=== PATIENT | female | born 1965 | race Caucasian/White ===

== ENCOUNTER 2017-05-20 12:40 | Emergency (ER) | payer MEDICARE, OTHER ==
[~2017-05-20] VITALS: Ht 172.7 cm; Wt 95.8 kg
[~2017-05-20 12:40] MED LIST: CYCL1TAB29 PO; DIAZ5 PO; HYDR-3533 PO; HYDR25TA5 PO; LEVO50TA4 PO; NEXI40CA PO; PRED-503 PO; TRAZ100T4 PO
[2017-05-20 12:44] VITALS: BP 161/94; PULSE 99; RESP 16; TEMP 98.5; O2SAT 96
[2017-05-20] MEDS ORDERED: PRED10 PO (12:56)
--- NOTE | 2017-05-20 12:59 | PD ---
HPI . lost voice, slightly sore throat Chief Complaint: ENT Complaint Time Seen by Provider: 12:59 Travel History International Travel<30 days: No Contact w/Intl Traveler<30days: No Traveled to known affect area: No History of Present Illness HPI 52-year-old female here with complaints of loss of voice and slight sore throat. Patient tells me that on 15 May she went to a concert and she thought she lost her voice from yelling too much, however her friend had similar issues and her throat and voice are back, but the patient's voice is still somewhat hoarse. She feels her throat may be tight. She decided to come to the emergency room for evaluation because she wants to be placed on antibiotics as her grandchildren are coming to visit her. She denies any fever, chills or cold like symptoms. PFSH Past Medical History Autoimmune Disease: No Depression: Yes Cancer: No Cardiovascular Problems: Yes (HEART MURMUR) Chemotherapy: No COPD: Yes Cerebrovascular Accident: Yes Diabetes: No Diminished Hearing: No Endocrine: Yes GERD: Yes Genitourinary: No Immune Disorder: No Implanted Vascular Access Dvce: Yes (ANEURYSM CLIP) Musculoskeletal: No Neurologic: No Psychiatric: Yes (DEPRESSION ) Reproductive: No Respiratory: No Immunizations Current: Yes Pancreatitis: Yes Radiation Therapy: No Thyroid Disease: Yes Tetanus Vaccination: > 5 Years Influenza Vaccination: No ?: Not Past Surgical History Abdominal Surgery: Yes (appy) Appendectomy: Yes Body Medical Devices: clips in brain Genitourinary Surgery: Yes (BLADDER SURGERY ) Gynecologic Surgery: Yes (hsyterectomy ) Hysterectomy: Yes Neurologic Surgery: Yes (CLIP ON BRAIN ANUERYSM) Social History Alcohol Use: No (former drinker) Tobacco Use: Yes (3/4 PK) Substance Use: No Allergies-Medications (Allergen,Severity, Reaction): Coded Allergies: No Known Allergies (Unverified , 05/20/17) Reported Meds & Prescriptions Reported Meds & Active Scripts Active Reported Prednisone 10 Mg Tab 10 Mg PO DAILY Hydrochlorothiazide 25 Mg Tab 25 Mg PO DAILY Valium (Diazepam) 5 Mg Tab 5 Mg PO HS PRN Nexium (Esomeprazole DR) 40 Mg Capdr 40 Mg PO DAILY Levothyroxine (Levothyroxine Sodium) 50 Mcg Tab 50 Mcg PO DAILY Review of Systems General / Constitutional: No: Fever Eyes: No: Visual changes HENT: Positive: Sore Throat, Other (loss of voice), No: Headaches Cardiovascular: No: Chest Pain or Discomfort Respiratory: No: Shortness of Breath Gastrointestinal: No: Abdominal Pain Genitourinary: No: Dysuria Musculoskeletal: No: Pain Skin: No Rash Neurologic: No: Weakness Psychiatric: No: Depression Endocrine: No: Polydipsia Hematologic/Lymphatic: No: Easy Bruising Physical Exam Narrative GENERAL: AAO x 3, no acute distress, Well-nourished, well-developed patient. SKIN: Warm and dry. No visible rashes or bruising. HEAD: Normocephalic and atraumatic. EYES: No scleral icterus. No injection or drainage. EOM intact, PERRLA ENT: No nasal drainage noted. Mucous membranes pink. Airway patent. No oropharynx abnormality. TMs normal bilaterally. NECK: Supple, trachea midline. No JVD. No lymphadenopathy CARDIOVASCULAR: Regular rate and rhythm without murmurs, gallops, or rubs. RESPIRATORY: Breath sounds equal bilaterally. No accessory muscle use. No rhonchi or rales. GASTROINTESTINAL: Visual inspection normal EXTREMITIES: No cyanosis or edema. BACK: Nontender without obvious deformity. No CVA tenderness. NEURO: Grossly intact PSYCH: AAO x 3, normal affect. Data Data Last Documented VS Vital Signs Date Time Temp Pulse Resp B/P Pulse Ox O2 Delivery O2 Flow Rate FiO2 05/20/17 12:44 98.5 99 16 161/94 96 Orders Group A Rapid Strep Screen (05/20/17 13:05) Strep Culture (Group A) (05/20/17 13:10) MDM Medical Decision Making Medical Screen Exam Complete: Yes Emergency Medical Condition: Yes Medical Record Reviewed: Yes Differential Diagnosis Laryngitis, viral pharyngitis, less likely strep pharyngitis, less likely sinusitis, GERD Narrative Course 52-year-old female here with laryngitis and somewhat of a sore throat. Examination is unremarkable. She does not have any acute abnormalities. I discussed this with her. She is requesting to be placed on prophylactic antibiotics as her grandchildren are coming into town. I have had a prolonged discussion with her regarding overuse of antibiotics. I explained to her that I do not see any physical exam findings of a bacterial infection. She is afebrile. I will check a rapid strep test, however I do believe this is going to be negative. I've had a discussion with her regarding viruses. Date/Time Procedure Status Source Growth 05/20/17 13:10 Group A Streptococcus Screen (IRA) - Final Complete Throat 05/20/17 13:10 Group A Streptococcus Screen Received Throat Pending Discussed with patient has was negative. I advised if her symptoms persist that she will need follow-up with primary care provider with smoking and risks of GERD/cancer etc. Patient verbalized understanding of instructions, questions were answered, and thanked me for their care. I advised them if their condition worsens, please return to the nearest emergency room for further care. Diagnosis Primary Impression: Laryngitis Patient Instructions: General Instructions Additional Instructions: If your symptoms persist, follow-up with her primary care provider. Med/Other Pt SpecificInfo: No Change to Meds Disposition: 01 DISCHARGE HOME Condition: Stable Sammi Salas May 20, 2017 12:59
== END 2017-05-20 13:51 | disposition home or self-care (01) ==
LOC: PHED 12:40
DX: J04.0 Acute laryngitis (principal); E07.9 Disorder of thyroid, unspecified; F17.200 Nicotine dependence, unspecified, uncomplicated; Z86.59 Personal history of other mental and behavioral disorders; Z86.79 Personal history of other diseases of the circulatory system; Z87.09 Personal history of other diseases of the respiratory system; Z87.19 Personal history of other diseases of the digestive system
CPT/HCPCS: 87081; 87880; 99283

== ENCOUNTER 2017-08-04 08:28 | Emergency (ER) | payer MEDICARE, OTHER ==
[~2017-08-04] VITALS: Ht 172.7 cm; Wt 91.6 kg
[~2017-08-04 08:28] MED LIST changes: -CYCL1TAB29 PO; -HYDR-3533 PO; -PRED-503 PO; +PRED10 PO; -TRAZ100T4 PO
[2017-08-04 08:34] VITALS: BP 134/69; PULSE 98; RESP 16; TEMP 97.9; O2SAT 96
[2017-08-04 08:48] LABS: BLOOD, URINE NEG (NEG); GLUCOSE,URINE NEG (NEG); KETONE, URINE NEG (NEG); NITRITE,URINE NEG (NEG); PH, URINE 6.5 (5.0-8.5)
--- NOTE | 2017-08-04 08:49 | PD ---
HPI Chief Complaint: Complaint Time Seen by Provider: 08:45 Travel History International Travel<30 days: No Contact w/Intl Traveler<30days: No Traveled to known affect area: No History of Present Illness HPI Patient presents with complaints of right lower back pain with urinary frequency and pain for 2-3 days. Denies hematuria. Denies nausea vomiting diarrhea or fever. No new rashes. She is a smoker. Denies any misstep or fall. Reports previous concerns of bladder prolapse. PFSH Past Medical History Autoimmune Disease: No Depression: Yes Cancer: No Cardiovascular Problems: Yes (HEART MURMUR) Chemotherapy: No COPD: Yes Cerebrovascular Accident: Yes Diabetes: No Diminished Hearing: No Endocrine: Yes GERD: Yes Genitourinary: No Immune Disorder: No Implanted Vascular Access Dvce: Yes (ANEURYSM CLIP) Musculoskeletal: No Neurologic: No Psychiatric: Yes (DEPRESSION ) Reproductive: No Respiratory: No Immunizations Current: Yes Pancreatitis: Yes Radiation Therapy: No Thyroid Disease: Yes Past Surgical History Abdominal Surgery: Yes (appy) Appendectomy: Yes Body Medical Devices: clips in brain Genitourinary Surgery: Yes (BLADDER SURGERY ) Gynecologic Surgery: Yes (hsyterectomy ) Hysterectomy: Yes Neurologic Surgery: Yes (CLIP ON BRAIN ANUERYSM) Social History Alcohol Use: No (former drinker) Tobacco Use: Yes (3/4 PK) Substance Use: No Allergies-Medications (Allergen,Severity, Reaction): Coded Allergies: No Known Allergies (Unverified , 08/04/17) Reported Meds & Prescriptions Reported Meds & Active Scripts Active Reported Hydrochlorothiazide 25 Mg Tab 25 Mg PO DAILY Valium (Diazepam) 5 Mg Tab 5 Mg PO HS PRN Nexium (Esomeprazole DR) 40 Mg Capdr 40 Mg PO DAILY Levothyroxine (Levothyroxine Sodium) 50 Mcg Tab 50 Mcg PO DAILY Review of Systems General / Constitutional: No: Fever Eyes: No: Visual changes HENT: No: Headaches Cardiovascular: No: Chest Pain or Discomfort Respiratory: No: Shortness of Breath Gastrointestinal: No: Abdominal Pain Genitourinary: Positive: Urgency, Frequency, No: Dysuria Musculoskeletal: No: Pain Skin: No Rash Neurologic: No: Weakness Psychiatric: No: Depression Endocrine: No: Polydipsia Hematologic/Lymphatic: No: Easy Bruising Physical Exam Narrative GENERAL: Well-nourished, well-developed patient. SKIN: Focused skin assessment warm/dry. HEAD: Normocephalic. EYES: No scleral icterus. No injection or drainage. NECK: Supple, trachea midline. No JVD or lymphadenopathy. CARDIOVASCULAR: Regular rate and rhythm without murmurs, gallops, or rubs. RESPIRATORY: Breath sounds equal bilaterally. No accessory muscle use. GASTROINTESTINAL: Abdomen soft, non-tender, nondistended. MUSCULOSKELETAL: No cyanosis, or edema. BACK: Nontender without obvious deformity. No CVA tenderness. Data Data Last Documented VS Vital Signs Date Time Temp Pulse Resp B/P (MAP) Pulse Ox O2 Delivery O2 Flow Rate FiO2 08/04/17 08:34 97.9 98 16 134/69 (90) 96 Orders Orders Urinalysis - C+S If Indicated (08/04/17 08:41) Urine Culture (08/04/17 08:22) Labs Laboratory Tests Test 08/04/17 08:22 Urine Collection Type CLEAN CATCH Urine Color STRAW Urine Turbidity SLIGHT Urine pH 6.5 Urine Specific [place] 1.006 Urine Protein NEG mg/dL Urine Glucose (UA) NEG mg/dL Urine Ketones NEG mg/dL Urine Occult Blood NEG Urine Nitrite NEG Urine Bilirubin NEG Urine Leukocyte Esterase MOD Urine WBC 20-24 /hpf Urine Squamous Epithelial Cells > 8 /hpf Urine Transitional Epithelial Cells 0-5 /hpf Urine Amorphous Sediment MOD Urine Bacteria FEW /hpf Microscopic Urinalysis Comment CULTURE INDICATED Urine Collection Time 0845 [facility] Medical Decision Making Medical Screen Exam Complete: Yes Emergency Medical Condition: Yes Differential Diagnosis Lumbar sacral musculoskeletal pain, UTI, urosepsis, nephrolithiasis Narrative Course Assessment and plan discussed with patient at bedside Diagnosis Primary Impression: Back pain Qualified Codes: M54.41 - Lumbago with sciatica, right side; G89.29 - Other chronic pain Additional Impression: Dysuria Patient Instructions: General Instructions Additional Instructions: Encourage nonsteroidal anti-inflammatories warm heat gentle stretching and strengthening and massage, encourage fluids and cranberry supplement, follow-up with PCP, return to emergency with any onset of new symptoms. Med/Other Pt SpecificInfo: Prescription(s) given Scripts Ciprofloxacin (Cipro) 500 Mg Tab 500 MG PO BID for Infection, #6 TAB 0 Refills Prov: Mitch Neville MD 08/04/17 Cyclobenzaprine (Flexeril) 10 Mg Tab 10 MG PO TID for back pain, #15 TAB 0 Refills Prov: Mitch Neville MD 08/04/17 Hydrocodone-Acetaminophen (Hydrocodone-Acetaminophen) 5-325 mg Tab 1 TAB PO Q4H Y for PAIN, #15 TAB 0 Refills Prov: Mitch Neville MD 08/04/17 Disposition: 01 DISCHARGE HOME Condition: Good Mitch Neville MD Aug 04, 2017 08:49
[2017-08-04 08:54] LABS: BACTERIA, URINE FEW /hpf; COMMENT (UR) CULTURE INDICATED; CULTURE IF INDICATED CULTURE INDICATED; METHOD OF COLLECTION CLEAN CATCH; SQUAMOUS EPITHELIAL CELL URINE > 8 /hpf (0-5); TRANSITIONAL EPI CELLS, URINE 0-5 /hpf; URINE COLOR STRAW (YELLW/STRAW)
[2017-08-04] MEDS ORDERED: HYDR-3516 PO (09:10)
[2017-08-04] MEDS ORDERED: CYCL1TAB29 PO (09:10)
[2017-08-04] MEDS ORDERED: CIPR-9 PO (09:10)
== END 2017-08-04 09:17 | disposition home or self-care (01) ==
LOC: PHED 08:28
DX: M54.41 Lumbago with sciatica, right side (principal); G89.29 Other chronic pain; R30.0 Dysuria; F17.200 Nicotine dependence, unspecified, uncomplicated
CPT/HCPCS: 81001; 87086; 99284